=== PATIENT | female | born 1945 | race Caucasian/White ===

== ENCOUNTER 2021-12-07 15:07 | Emergency (ER) | payer MEDICAID ==
[~2021-12-07] VITALS: Ht 162.6 cm; Wt 54.0 kg
[2021-12-07] MEDS ORDERED: IBUPROFEN 600 MG TABLET PO ONE (19:30)
[2021-12-07 22:30] VITALS: BP 133/72
== END 2021-12-07 23:21 | disposition home or self-care (01) ==
LOC: EMS 15:09
DX: M79.641 Pain in right hand (principal); I10 Essential (primary) hypertension
CPT/HCPCS: 99284; 73030-TC; 73060-TC; Z7502; Z7610